=== PATIENT | female | born 1960 | race Asian ===

== ENCOUNTER 2019-11-12 07:01 | Day surgery (SDC) | payer OTHER, SELFPAY ==
[~2019-11-12] VITALS: Ht 152.4 cm; Wt 68.0 kg
[2019-11-12] MEDS ORDERED: MIDAZOLAM 5 MG/5 ML VIAL ONE (08:49)
[2019-11-12] MEDS ORDERED: diphenhydrAMINE 50 MG/ML VIAL ONE (08:49)
[2019-11-12] MEDS ORDERED: fentaNYL citrate 0.05 MG/ML VIAL ONE (08:49)
[2019-11-12] MEDS: MIDAZOLAM 2 MG/2 ML VIAL IVP ONE (08:52)
[2019-11-12] MEDS: fentaNYL citrate 0.05 MG/ML VIAL IVP ONE (08:53)
[2019-11-12] MEDS: LIDOCAINE 2% 100 MG/5 ML UJET TP ONE (08:54)
== END 2019-11-12 10:07 | disposition home or self-care (01) ==
LOC: MDS 07:01 → MMU 07:04 → MDS 10:07
PROVIDERS: ATTEND Internal Medicine Gastroenterology
DX: Z12.11 Encounter for screening for malignant neoplasm of colon (principal); Z88.0 Allergy status to penicillin; Z20.828 Contact with and (suspected) exposure to other viral communicable diseases
CPT/HCPCS: 45378; J2250; J3010; U0003; J1200